=== PATIENT | female | born 1960 | race American Indian/Alaskan Native ===

== ENCOUNTER 2021-04-20 05:45 | Emergency (ER) | payer OTHER ==
[~2021-04-20] VITALS: Ht 162.6 cm; Wt 65.8 kg
--- NOTE | ~2021-04-20 | EMS ---
[address] [address] EMS Patient Care Report Name: MATT ROQUE Room #: DEP Alyce#: [id number] Admission: 04/20/21 Attend Phys: Discharge: 04/20/21 Date of : 58 Report #: [id number] THIS REPORT FOR: //name// Report Transmitted: 04/23/2021 08:07 EMS Care Summary [place], [place]/[facility] Incident [id number] @ 04/20/2021 05:12 Incident Location [address] [place], [place] [id number] Patient MATT ROQUE Female, 60 Years 1960 Patient Address [address] [place], [place] [id number] Patient History Smoking, Patient Allergies No known allergies, Patient Medications None Reported, Chief Complaint Respiratory distress Disposition Transported No Lights/[place] Dispatch Reason Breathing Problem Transported To [facility] Narrative M42 dispatched for a 60 year old female conscious and breathing having shortness of breath. Arrival at the scene EMS personnel find the patient sitting down in the front yard on a chair. Patient acknowledges EMS presence and is GCS 15, AAOx4. Patient is noted to have tachypnea and tachycardia with [address] [address] EMS Patient Care Report Name: MATT ROQUE Room #: DEP Alyce#: [id number] Admission: 04/20/21 Attend Phys: Discharge: 04/20/21 Date of : 58 Report #: [id number] increased work of breathing. Patient is speaking in 2 to 3 word sentences through respiratory distress. VS are obtained and lung sounds are auscultated. Wheezes are heard with diminished lung sounds in the bases. SPO2 on room air is noted to be 88%. Patient is placed on Oxygen via nebulizer at 10LPM with an Albuterol and Atrovent treatment being administered. Patient advises of nausea and begins vomiting. Patient is moved to the stretcher and secured in the fowlers position using seatbelts and rails. Patient is moved to the ambulance and placed on the monitor to obtain VS and ECG. IV access is established in the right antecubital region using a 20G and secured with a venigard. 4mg of Zofran is given IVP and transport to [facility] is initiated.125mg of Solu-Medrol is administered IVP. Assessment is conducted. Patient is GCS 15, AAOx4. Patient has a patent airway is breathing adequately with strong regular radial pulses. Skin is pink warm and dry. HEENT are WNL. Pupils are PERRL Trachea is midline with no JVD noted. Chest wall is stable and intact. Lung sounds are auscultated and wheezes are heard. Abdomen is soft and nontender with no distention or rigidity noted. Pelvis is stable and intact with CMSX4 present. Arrival at the receiving facility patient condition has improved and is stable. Patient is offloaded and taken to ED room 8. RN is given report and transfer of care is completed. Signatures are obtained and M42 returns to service. Initial Vitals @05:23P: 135,CO: 0,SpO2: 89, @05:22P: 129,R: 22,BP: 96/54,Pain: 0/10,GCS: 15,Glucose: 164,SpO2: 94,Revised Trauma: 12, @05:18P: 116,R: 24,BP: 97/61,Pain: 0/10,GCS: 15,SpO2: 90,Revised Trauma: 12,RI Suspected: false Assessments @05:20MENTAL:No Abnormalities,SKIN:No Abnormalities,HEENT:Head/Face: No Abnormalities,Eyes: No Abnormalities,Neck/Airway: No Abnormalities,LUNG SOUNDS:General: No Abnormalities,Left Upper: No Abnormalities,Right Upper: No Abnormalities,Left Lower: No Abnormalities,Right Lower: No Abnormalities,ABDOMEN:General: No Abnormalities,Left Upper: No Abnormalities,Right Upper: No Abnormalities,Left Lower: No Abnormalities,Right Lower: No Abnormalities,PELVIS//GI:No Abnormalities,EXTREMITIES:Left Arm: No Abnormalities,Right Arm: No Abnormalities,Left Leg: No Abnormalities,Right Leg: No Abnormalities,PULSE:NEURO:No Abnormalities,@05:25MENTAL:No Abnormalities,SKIN:No Abnormalities,HEENT:Head/Face: No Abnormalities,Eyes: No Abnormalities,Neck/Airway: No Abnormalities,LUNG SOUNDS:General: No Abnormalities,Left Upper: No Abnormalities,Right Upper: No Abnormalities,Left Lower: No Abnormalities,Right Lower: No Abnormalities,ABDOMEN:General: No Abnormalities,Left Upper: No Abnormalities,Right Upper: No Abnormalities,Left Lower: No Abnormalities,Right Lower: No Abnormalities,PELVIS//GI:No [address] [place] [address] EMS Patient Care Report Name: MATT ROQUE Room #: DEP M.R.#: [id number] Admission: 04/20/21 Attend Phys: Discharge: 04/20/21 Date of : 58 Report #: [id number] Abnormalities,EXTREMITIES:Left Arm: No Abnormalities,Right Arm: No Abnormalities,Left Leg: No Abnormalities,Right Leg: No Abnormalities,PULSE:Radial: 2+ Normal,NEURO:No Abnormalities, Impression Shortness of breath Procedures @05:20 Oxygen FlowRate: 10 Device: Nebulizer Response: UnchangedSucceeded @05:25 IV Therapy - Saline Lock 10cc (20 ga) Site: Antecubital-Right Response: UnchangedSucceeded @05:19 ALS Assessment Response: UnchangedSucceeded @05:20 Albuterol - 2.5 Milligrams (mg) - Nebulized Response: Improved @05:20 Atrovent - 0.5 Milligrams (mg) - Nebulized Response: Improved @05:26 Zofran - 4 Milligrams (mg) - Intravenous (IV) Response: Unchanged @05:28 Solu-Medrol - 125 Milligrams (mg) - Intravenous (IV) Response: Improved @05:20 3-Lead ECG Response: UnchangedSucceeded Timeline 05:10,Call Received 05:10,Dispatch Notified 05:12,Dispatched 05:15,En Route 05:17,On Scene 05:18,At Patient 05:18,BP: 97/61 M,PULSE: 116,RR: 24 R,SPO2: 90 Ox,ETCO2: ,BG: ,PAIN: 0,GCS: 15, 05:19,ALS Assessment,Response: UnchangedSucceeded, 05:20,Albuterol - 2.5 Milligrams (mg) - Nebulized,Response: Improved 05:20,3-Lead ECG,Response: UnchangedSucceeded, 05:20,Oxygen FlowRate: 10 Device: Nebulizer Response: UnchangedSucceeded, 05:20,Atrovent - 0.5 Milligrams (mg) - Nebulized,Response: Improved 05:22,BP: 96/54 M,PULSE: 129,RR: 22 R,SPO2: 94 Ox,ETCO2: ,B,PAIN: 0,GCS: 15, 05:23,BP: / M,PULSE: 135,RR: R,SPO2: 89 Ox,ETCO2: ,BG: ,PAIN: ,GCS: , 05:25,IV Therapy - Saline Lock 10cc 20 ga Site: Antecubital-Right,Response: UnchangedSucceeded, 05:26,Zofran - 4 Milligrams (mg) - Intravenous (IV),Response: Unchanged 05:28,Solu-Medrol - 125 Milligrams (mg) - Intravenous (IV),Response: Improved 05:33,Depart Scene 05:42,At Destination 06:05,Call Closed Disclaimer [email or web address] Copyright 2020 [employer] This EMS Care Summary contains data elements from the applicable legal record [address] [address] EMS Patient Care Report Name: MATT ROQUE [facility] [id number] Admission: 04/20/21 Attend Phys: Discharge: 04/20/21 Date of : 58 Report #: [id number] (which may be displayed differently). It is designed to provide pertinent information for the following purposes: continuity of care, clinical quality, and state data reporting. The complete legal record is available to ED staff and administrators of the receiving hospital in [facility]'s Patient Tracker. All data is provided "as is."
[2021-04-20 06:08] LABS: BE(vivo) -0.7 mmol/L (-2 to +3); HCO3 25.5 mmol/L (22.0-26.0); PCO2 47.5 mmHg (35.0-45.0); PO2 82.3 mmHg (80.0-100.0); pH 7.348 (7.360-7.450); sO2 95.5 % (92.0-98.0)
[2021-04-20 06:13] LABS: ABSOLUTE NEUTROPHILS 4.6 thou/uL (1.4-8.2); BASOPHILS 0.3 % (0.0-2.0); EOSINOPHILS 1.3 % (0.0-3.0); HEMOGLOBIN 15.5 gm/dL (12.0-15.0); LYMPHOCYTES 44.1 % (24.0-44.0); MCH 32.6 pg (26.0-34.0); MCHC 34.4 g/dL (28.0-37.0); MCV 94.7 fL (80.0-100.0); MONOCYTES 4.7 % (1.0-8.0); PLATELET COUNT 363 thou/uL (150-400); POLYS 49.6 % (36.0-66.0); RBC 4.75 mil/uL (4.20-5.00); RDW 13.1 % (10.5-14.5); WBC 9.3 thou/uL (4.0-11.0)
[2021-04-20 06:43] LABS: CALCIUM 8.8 mg/dL (8.5-10.1); CREATININE 0.8 mg/dL (0.6-1.0); POTASSIUM 3.6 mmol/L (3.5-5.1)
[2021-04-20] MEDS ORDERED: MEDROL DOSPAK21 TA1 PO (09:52)
[2021-04-20] MEDS ORDERED: PROAIR HFA8.5 GM INH ×2 (09:52→12:12)
[2021-04-20 09:55] VITALS: BP 132/70
--- NOTE | 2021-04-20 10:52 | EKG ---
[place] [address] [facility] [place] [employer] [place] [address] ELECTROCARDIOGRAM REPORT Name: MATT ROQUE Room #: [facility]P [facility] [id number] Admission: 04/20/21 Attend Phys: Discharge: 04/20/21 Date of : 58 Report #: [id number] [facility] ED Test Date: 2021-04-20 Test Time: 05:55:06 Pat Name: MATT ROQUE Department: Room: Gender: F Home Advisor: ADDIS HERRERA : 1960 Requested By: Samson Balderas Order Number: [id number] MD: Titus Moore Measurements Intervals [place] Rate: 91 P: 84 CT: 168 QRS: 55 QRSD: 100 T: 53 QT: 395 QTc: 487 Interpretive Statements Sinus rhythm Borderline prolonged QT interval Baseline wander in lead(s) V5 No previous ECG available for comparison Electronically Signed On 04-20-2021 10:51:41 [employer]ELOPMENT PROFESSION[employer] by Titus Moore [email or web address] <ELECTRONICALLY SIGNED> By: Titus Moore MD 04/20/21 [id number] Titus Moore MD /EPI
[2021-04-20] MEDS ORDERED: MEDROLDOSEPACK PO (12:12)
== END 2021-04-20 09:55 | disposition home or self-care (01) ==
LOC: ER 05:45
PROVIDERS: Emergency Medicine
DX: J44.1 Chronic obstructive pulmonary disease with (acute) exacerbation (principal); Z20.822 Contact with and (suspected) exposure to COVID-19